=== PATIENT | female | born 1965 | race Caucasian/White ===

== ENCOUNTER 2024-12-19 06:30 | Day surgery (SDC) | payer BC, OTHER ==
[2024-12-19] MEDS ORDERED: Midazolam 1 MG/ML 2 ML SDV ONE (07:22)
[2024-12-19] MEDS ORDERED: fentaNYL 100 MCG/2 ML SDV ONE (07:22)
[2024-12-19] MEDS ORDERED: Midazolam 1 MG/ML 2 ML SDV IV ONE (07:22)
[2024-12-19] MEDS ORDERED: fentaNYL 100 MCG/2 ML SDV IV ONE (07:22)
[2024-12-19] MEDS: fentaNYL 100 MCG/2 ML SDV IV ONE ×2 (07:37→07:38)
[2024-12-19] MEDS: Midazolam 1 MG/ML 2 ML SDV IV ONE ×4 (07:39→07:42)
[2024-12-19] MEDS: Dextrose 5%-0.45% NaCl 1,000 ML IV SCH (08:51)
== END 2024-12-19 09:21 | disposition home or self-care (01) ==
LOC: DL.ENDO 06:30
PROVIDERS: ATTEND Internal Medicine Gastroenterology
DX: Z12.11 Encounter for screening for malignant neoplasm of colon (principal); I10 Essential (primary) hypertension; Z88.1 Allergy status to other antibiotic agents
CPT/HCPCS: J2250; J3010